=== PATIENT | male | born 1955 | race Caucasian/White ===

== ENCOUNTER 2024-09-12 07:40 | Day surgery (SDC) | payer OTHER ==
[2024-09-12] MEDS: COSYNTROPIN 0.25 MG VIAL IV ONE ×2 (08:06→08:20)
[2024-09-12 09:31] VITALS: O2SAT 100; BMI 23.6
[2024-09-12 10:26] VITALS: BP 114/68; TEMP 97.8
== END 2024-09-12 10:00 | disposition home or self-care (01) ==
LOC: DS 07:40
PROVIDERS: ATTEND Internal Medicine
DX: E87.1 Hypo-osmolality and hyponatremia (principal)
CPT/HCPCS: 36415; 82533 ×4; 82024; J0834